=== PATIENT | female | born 1945 | race Caucasian/White ===

== ENCOUNTER 2019-06-09 09:37 | Inpatient (IN) | payer MEDICARE ==
[~2019-06-09] VITALS: Ht 172.7 cm; Wt 93.2 kg
[2019-06-09] VITALS (12 sets, daily range): BP systolic 88–143; BP diastolic 38–95
[~2019-06-09 09:37] MED LIST: ALBU18HF2 INH; ALBU2.5V12 NEB; ASPI81TA44 PO; BUPR150T13 PO; CARB200T PO; CHOL100046 PO; CLON-528 PO; FLUT1DIS4 INH; LOVA20TA2 PO; MONT10TA24 PO; MULT1TAB74 PO; RISP0.257 PO; SYN0.088T PO; ZOLP10TA5 PO
[2019-06-09] MEDS ORDERED: iohexol 350MG/ML 100ml bottle IV ONE ×2 (10:06→19:19)
[2019-06-09 10:08] LABS: BASOPHILS % (AUTO) 0.8 % (0-1); EOSINOPHILS # (AUTO) 0.1 X10'3 (0-0.9); EOSINOPHILS % (AUTO) 1.7 % (0-6); HEMATOCRIT 40.2 % (35.0-45.0); HEMOGLOBIN 13.6 g/dl (12.0-16.0); LYMPHOCYTES # (AUTO) 1.5 X10'3 (1.1-4.8); LYMPHOCYTES % (AUTO) 30.2 % (21-51); MEAN CORPUSCULAR HEMOGLOBIN 30.6 PG (27.0-31.0); MEAN CORPUSCULAR HGB CONC 33.8 g/dL (33.0-36.5); MEAN CORPUSCULAR VOLUME 90.6 FL (78-98); MEAN PLATELET VOLUME 7.7 FL (7.4-10.4); MONOCYTES # (AUTO) 0.4 X10'3 (0-0.9); MONOCYTES % (AUTO) 7.3 % (2-12); NEUTROPHILS # (AUTO) 3.1 X10'3 (1.8-7.7); PLATELET COUNT 224 X10'3 (140-440); RED BLOOD COUNT 4.44 X10'6 (4.20-5.60); RED CELL DISTRIBUTION WIDTH 13.5 % (11.5-14.5); WHITE BLOOD COUNT 5.1 X10'3 (4.5-11.0)
--- NOTE | 2019-06-09 10:17 | NUR ---
pt out to ct via wheelchair with head inspector and center marker
[2019-06-09 10:26] LABS: ALANINE AMINOTRANSFERASE 19 U/L (12-78); ALBUMIN 3.1 G/DL (3.4-5.0); ALBUMIN/GLOBULIN RATIO 0.9 (1.1-1.5); ALKALINE PHOSPHATASE 117 IU/L (46-116); ANION GAP 8 (8-16); ASPARTATE AMINO TRANSFERASE 34 U/L (10-37); BILIRUBIN,TOTAL 0.4 MG/DL (0.1-1.0); BLOOD UREA NITROGEN 8 MG/DL (7-18); BUN/CREATININE RATIO 8.2 (6.6-38.0); CALCIUM 9.3 MG/DL (8.5-10.1); CHLORIDE 109 MMOL/L (99-107); CREATININE 0.98 MG/DL (0.40-0.90); GLUCOSE 98 MG/DL (70-104); SODIUM 143 MMOL/L (135-145); TOTAL CARBON DIOXIDE 25.6 MMOL/L (24-32); TOTAL PROTEIN 6.5 G/DL (6.4-8.2); eGFR 56 ML/MIN
[2019-06-09 10:35] LABS: MAGNESIUM 1.9 MG/DL (1.5-2.4)
[2019-06-09 10:36] LABS: POTASSIUM 3.8 MMOL/L (3.5-5.1)
[2019-06-09] MEDS ORDERED: metoprolol tartrate 1mg/ml inj IV ONE (10:55)
[2019-06-09 11:01] LABS: D-DIMER 0.65 MG/L FEU (0-0.50)
--- NOTE | 2019-06-09 11:18 | NUR ---
NOTIFIED DR SOLORIO REGARDING PT CP 01/[address] GUARDADO HE WILL ORDER PAIN MEDICATION AND ALSO ORDER NITRO DRIP .
[2019-06-09] MEDS ORDERED: fentaNYL/PF 50MCG/1 ML 2ML syringe IV ONE (11:20)
[2019-06-09] MEDS ORDERED: nitroGLYCERIN-Tridil 50MG/D5W 250 ML IV SCH (11:20)
--- NOTE | 2019-06-09 11:44 | NUR ---
pt recevied fentnyl 50 mcg iv for cp 01/12,pt bp checked prior to metoprol administration 145/109,hr 94.pt post metoprol admin bpo 128/89,hr 91.
[2019-06-09] MEDS ORDERED: BUPR-84 PO (12:22)
[2019-06-09] MEDS ORDERED: LOSA50TA64 PO (12:22)
[2019-06-09] MEDS ORDERED: QUET25TA34 PO (12:22)
--- NOTE | 2019-06-09 12:25 | NUR ---
DR. GOMEZ IS OUT OF TOWN, WILL CALL DR. IBARRA, NUTRITION PROFESSOR.
--- NOTE | 2019-06-09 13:00 | NUR ---
Patient in room MED 309. I have received report from [facility] and had the opportunity to ask questions and assume patient care.
[2019-06-09] MEDS ORDERED: GABA-530 PO (13:52)
--- NOTE | 2019-06-09 14:10 | NUR ---
Critical troponin - called Dr. Morton Spoke with Dr. Morton regarding 3hr troponin of 9.27, received orders to initiate heparin and aggrastat gtt per protocol. No other orders given at this time.
[2019-06-09] MEDS ORDERED: heparin 25,000 UNIT/250ml bag 250 ML IV SCH (14:51)
[2019-06-09] MEDS ORDERED: heparin 10,000 units/1 ML INJ IV PRN (14:55)
[2019-06-09] MEDS ORDERED: tirofiban 5mg in NS 100mL 100 ML IV SCH (14:55)
[2019-06-09] MEDS ORDERED: heparin 10,000 units/1 ML INJ IV ONE (14:55)
[2019-06-09 16:08] LABS: PARTIAL THROMBOPLASTIN TIME 32 SECONDS (22-32)
--- NOTE | 2019-06-09 16:35 | NUR ---
Critical troponin - paged Dr. Morton "PAGER ID: [phone] MESSAGE: 309 Iraida Rodney 6hr troponin: 9.27 (3hr: 9.21). Heparin, nitro, and aggrastat infusing per orders. Bria ACCE [id number]"
[2019-06-09] MEDS ORDERED: predniSONE 20 mg tablet PO STA (17:17)
[2019-06-09] MEDS ORDERED: methylPREDNISolone sod succ 125mg/2ml vial IV ONE (17:20)
--- NOTE | 2019-06-09 17:40 | NUR ---
PAGER ID: [phone] MESSAGE: "RM 309 Iraida Rodney Please reconcile medications. Thanks, Bria ACCE [id number]"
--- NOTE | 2019-06-09 19:00 | NUR ---
DR. GARCIA IN TO SEE PATIENT. RECEIVED ORDERS TO CONTINUE ALL HOME MEDS. TMS FAXED TO PHARMACY. PATIENT WILL BE GOING TO SECURE SOFTWARE ASSESSOR SHORTLY.
[2019-06-09] MEDS ORDERED: LIDOcaine 1% (10mg/ml)w/preservative injection 20ml MDV ONE (19:19)
[2019-06-09] MEDS ORDERED: midazolam 2 mg/2 ml injection ONE (19:19)
[2019-06-09] MEDS ORDERED: iohexol 350 MG/ML 50ML vial IV ONE (19:19)
[2019-06-09] MEDS ORDERED: fentaNYL/PF 50MCG/1 ML 2ML syringe ONE (19:19)
[2019-06-09] MEDS ORDERED: clonazePAM 0.5mg tablet PO PRN (19:20)
[2019-06-09] MEDS ORDERED: non-formulary drug (Albuterol Sulfate (Ventolin Hfa) 2 PUFFS) INH SCH (19:20)
[2019-06-09] MEDS ORDERED: albuterol 2.5 MG/3 ML nebule NEB PRN (19:25)
[2019-06-09] MEDS ORDERED: proCHLORperazine 10 MG/2 ml inj ONE (19:48)
[2019-06-09] MEDS ORDERED: diphenhydrAMINE 50 mg/ml inj ONE (19:51)
[2019-06-09] MEDS: budesonide 0.5mg/2ml UD nebule IH SCH (20:00)
[2019-06-09] MEDS ORDERED: non-formulary drug (Fluticasone/Salmeterol (Advair 250-50 Diskus) 1 PUFFS) INH SCH (20:00)
--- NOTE | 2019-06-09 20:26 | NUR ---
patient just left the room for ct of the hip with iv contrast. patient alert, oriented x4. not on any pain. Addendum: 06/09/19 at 2026 by Temitope Quiroga RN worng patient.....patient did not go for ct of the hip.
[2019-06-09] MEDS ORDERED: atropine 0.1mg/ml 10ml syringe ONE (20:31)
[2019-06-09] MEDS ORDERED: DOBUTamine-DoBUTrex 500mg/D5W 250 ML IV ONE (20:34)
[2019-06-09] MEDS: albuterol 2.5 MG/3 ML nebule NEB SCH (21:00)
[2019-06-09] MEDS ORDERED: proCHLORperazine 10 MG/2 ml inj IV PRN (21:40)
[2019-06-09] MEDS ORDERED: HYDROcodone/acetaminophen 5mg/325mg tablet PO PRN (21:40)
[2019-06-09] MEDS ORDERED: ondansetron/PF 4mg/2ml inj IV PRN (21:40)
[2019-06-09] MEDS ORDERED: OXAZEpam 15mg capsule PO PRN (21:40)
[2019-06-09] MEDS ORDERED: normal saline 1000ml 1,000 ML IV ONE (21:40)
[2019-06-09] MEDS ORDERED: nitroGLYCERIN 0.4mg SUBLingual tab SL PRN (21:40)
[2019-06-09] MEDS: QUEtiapine 25mg tablet PO SCH (22:03)
[2019-06-09] MEDS: buPROPion SR 150mg tablet PO SCH (22:03)
[2019-06-09] MEDS: montelukast 10mg tablet PO SCH (22:03)
[2019-06-09] MEDS: carBAMazepine Ext. Release 200 MG TAB.ER.12H PO SCH (22:04)
[2019-06-09] MEDS: HYDROcodone/acetaminophen 10/325mg tab PO PRN (22:04)
[2019-06-09] MEDS: nystatin 15 GM powder TP SCH (22:05)
--- NOTE | 2019-06-09 23:50 | NUR ---
Dobutamin IV drip Discontinues at 2330 per written order of Dr. Rojas. The patient's systolic blood pressure above 120.
[2019-06-10] MEDS: gabapentin 100mg capsule PO SCH ×4 (00:08→23:56)
[2019-06-10 02:00] VITALS: BP 180/81
[2019-06-10] MEDS: HYDROcodone/acetaminophen 10/325mg tab PO PRN (02:10)
[2019-06-10] MEDS: albuterol 2.5 MG/3 ML nebule NEB SCH ×4 (03:37→19:44)
--- NOTE | 2019-06-10 06:33 | NUR ---
Problems reprioritized. Patient report given to Leticia, questions answered & plan of care reviewed with .
[2019-06-10 07:00] VITALS: BP 149/101
[2019-06-10 07:34] LABS: BASOPHILS % (AUTO) 0.2 % (0-1); EOSINOPHILS % (AUTO) 0 % (0-6); HEMATOCRIT 36.3 % (35.0-45.0); HEMOGLOBIN 12.2 g/dl (12.0-16.0); LYMPHOCYTES # (AUTO) 0.6 X10'3 (1.1-4.8); LYMPHOCYTES % (AUTO) 6.8 % (21-51); MEAN CORPUSCULAR HEMOGLOBIN 30.9 PG (27.0-31.0); MEAN CORPUSCULAR HGB CONC 33.5 g/dL (33.0-36.5); MEAN CORPUSCULAR VOLUME 92.1 FL (78-98); MEAN PLATELET VOLUME 8.1 FL (7.4-10.4); MONOCYTES # (AUTO) 0.2 X10'3 (0-0.9); NEUTROPHILS # (AUTO) 7.5 X10'3 (1.8-7.7); PLATELET COUNT 247 X10'3 (140-440); RED BLOOD COUNT 3.94 X10'6 (4.20-5.60); RED CELL DISTRIBUTION WIDTH 13.1 % (11.5-14.5); WHITE BLOOD COUNT 8.2 X10'3 (4.5-11.0)
[2019-06-10 07:51] LABS: ALBUMIN 2.9 G/DL (3.4-5.0); ANION GAP 12 (8-16); BLOOD UREA NITROGEN 11 MG/DL (7-18); BUN/CREATININE RATIO 12.5 (6.6-38.0); CHLORIDE 108 MMOL/L (99-107); CREATININE 0.88 MG/DL (0.40-0.90); GLUCOSE 157 MG/DL (70-104); SODIUM 142 MMOL/L (135-145); TOTAL CARBON DIOXIDE 22.1 MMOL/L (24-32); eGFR 63 ML/MIN
[2019-06-10] MEDS: carBAMazepine Ext. Release 200 MG TAB.ER.12H PO SCH ×2 (08:00→22:11)
[2019-06-10] MEDS ORDERED: losartan 50mg tablet PO SCH (08:00)
[2019-06-10] MEDS: budesonide 0.5mg/2ml UD nebule IH SCH ×2 (09:34→19:43)
[2019-06-10 11:00] VITALS: BP 102/54
[2019-06-10] MEDS: nystatin 15 GM powder TP SCH ×3 (12:06→22:16)
[2019-06-10] MEDS: multivitamins, therapeutics tablet PO SCH (12:06)
[2019-06-10] MEDS: buPROPion SR 150mg tablet PO SCH ×2 (12:06→20:00)
[2019-06-10] MEDS: atorvastatin 20mg tablet PO SCH (12:08)
[2019-06-10] MEDS: levoTHYROXINE 88mcg tablet PO SCH (12:26)
[2019-06-10 15:00] VITALS: BP 104/52
[2019-06-10 18:00] VITALS: BP 106/43
--- NOTE | 2019-06-10 18:00 | NUR ---
Patient in room MED 309. I have received report from JULIA SWANSON and had the opportunity to ask questions and assume patient care.
[2019-06-10 22:00] VITALS: BP 104/45
[2019-06-10] MEDS: QUEtiapine 25mg tablet PO SCH (22:10)
[2019-06-10] MEDS: montelukast 10mg tablet PO SCH (22:10)
[2019-06-11 02:00] VITALS: BP 89/42
[2019-06-11] MEDS: albuterol 2.5 MG/3 ML nebule NEB SCH ×2 (02:28→09:15)
[2019-06-11 05:11] LABS: BASOPHILS % (AUTO) 0.2 % (0-1); EOSINOPHILS % (AUTO) 0.1 % (0-6); HEMATOCRIT 27.7 % (35.0-45.0); HEMOGLOBIN 9.5 g/dl (12.0-16.0); LYMPHOCYTES # (AUTO) 1.6 X10'3 (1.1-4.8); LYMPHOCYTES % (AUTO) 17.7 % (21-51); MEAN CORPUSCULAR HEMOGLOBIN 31.5 PG (27.0-31.0); MEAN CORPUSCULAR HGB CONC 34.3 g/dL (33.0-36.5); MEAN CORPUSCULAR VOLUME 91.9 FL (78-98); MEAN PLATELET VOLUME 7.9 FL (7.4-10.4); MONOCYTES # (AUTO) 0.6 X10'3 (0-0.9); MONOCYTES % (AUTO) 6.6 % (2-12); NEUTROPHILS # (AUTO) 6.9 X10'3 (1.8-7.7); NEUTROPHILS % (AUTO) 75.4 % (42-75); PLATELET COUNT 198 X10'3 (140-440); RED BLOOD COUNT 3.01 X10'6 (4.20-5.60); RED CELL DISTRIBUTION WIDTH 13.7 % (11.5-14.5); WHITE BLOOD COUNT 9.1 X10'3 (4.5-11.0)
[2019-06-11 05:26] LABS: ALBUMIN 2.7 G/DL (3.4-5.0); ANION GAP 9 (8-16); BLOOD UREA NITROGEN 20 MG/DL (7-18); BUN/CREATININE RATIO 21.1 (6.6-38.0); CHLORIDE 108 MMOL/L (99-107); CREATININE 0.95 MG/DL (0.40-0.90); GLUCOSE 118 MG/DL (70-104); POTASSIUM 3.7 MMOL/L (3.5-5.1); SODIUM 142 MMOL/L (135-145); TOTAL CARBON DIOXIDE 25.5 MMOL/L (24-32); eGFR 58 ML/MIN
[2019-06-11 06:00] VITALS: BP 101/51
--- NOTE | 2019-06-11 06:00 | NUR ---
Patient in room MED 309. I have received report from Joie SWANSON and had the opportunity to ask questions and assume patient care.
--- NOTE | 2019-06-11 06:00 | NUR ---
Problems reprioritized. Patient report given, questions answered & plan of care reviewed with Gini SWANSON.
[2019-06-11 07:00] VITALS: BP 101/51
[2019-06-11] MEDS: multivitamins, therapeutics tablet PO SCH (08:51)
[2019-06-11] MEDS: nystatin 15 GM powder TP SCH ×2 (08:51→13:00)
[2019-06-11] MEDS: gabapentin 100mg capsule PO SCH (08:52)
[2019-06-11] MEDS: levoTHYROXINE 88mcg tablet PO SCH (08:52)
[2019-06-11] MEDS: buPROPion SR 150mg tablet PO SCH (08:52)
[2019-06-11] MEDS: atorvastatin 20mg tablet PO SCH (08:52)
[2019-06-11] MEDS: carBAMazepine Ext. Release 200 MG TAB.ER.12H PO SCH (08:53)
[2019-06-11] MEDS: budesonide 0.5mg/2ml UD nebule IH SCH (09:15)
[2019-06-11 11:00] VITALS: BP 125/65
[2019-06-11] MEDS ORDERED: APIX5TAB3 PO (12:18)
[2019-06-11 14:00] VITALS: BP_SYST 109; BP_SYST 115; BP_DIAS 64; BP_DIAS 67; BP_DIAS 70
--- NOTE | 2019-06-11 14:00 | NUR ---
Pt IV's removed catheters intact and no s/s of complications noted. Patient tolerated well. Orthostatic blood pressures taken and the negative (not orthostatic ) results called to him. Patients manages her medications and instructed to not give her anymore [place] per Dr Rojas. He had discontinued during pt stay. All instructions including medications given and the pt's stated understanding and agreed with POC. Pt was escorted in a wheelchair to a private vehicle and left without incident.
== END 2019-06-11 14:20 | disposition home or self-care (01) | DRG 281 ==
LOC: ER 09:37 → ED HOLD 11:29 → MED 3N 13:40
PROVIDERS: ADMIT Internal Medicine; ATTEND Internal Medicine
PROC: 4A023N7 Measurement of Cardiac Sampling and Pressure, Left Heart, Percutaneous Approach (ICD-10-PCS; principal; 2019-06-09)
PROC: B2111ZZ Fluoroscopy of Multiple Coronary Arteries using Low Osmolar Contrast (ICD-10-PCS; 2019-06-09)
PROC: B2151ZZ Fluoroscopy of Left Heart using Low Osmolar Contrast (ICD-10-PCS; 2019-06-09)
PROC: B41F1ZZ Fluoroscopy of Right Lower Extremity Arteries using Low Osmolar Contrast (ICD-10-PCS; 2019-06-09)
PROC: B41C1ZZ Fluoroscopy of Pelvic Arteries using Low Osmolar Contrast (ICD-10-PCS; 2019-06-09)
DX: I21.4 Non-ST elevation (NSTEMI) myocardial infarction (principal); I48.20 Chronic atrial fibrillation, unspecified; I48.92 Unspecified atrial flutter; E78.00 Pure hypercholesterolemia, unspecified; Z95.0 Presence of cardiac pacemaker; E03.9 Hypothyroidism, unspecified; E78.5 Hyperlipidemia, unspecified; I95.81 Postprocedural hypotension; E86.0 Dehydration; I10 Essential (primary) hypertension; J45.909 Unspecified asthma, uncomplicated; Z85.850 Personal history of malignant neoplasm of thyroid; F32.9 Major depressive disorder, single episode, unspecified; F43.10 Post-traumatic stress disorder, unspecified; Z90.49 Acquired absence of other specified parts of digestive tract; Z90.710 Acquired absence of both cervix and uterus; Z91.041 Radiographic dye allergy status; M79.7 Fibromyalgia; E66.9 Obesity, unspecified; Z68.31 Body mass index [BMI] 31.0-31.9, adult
CPT/HCPCS: 36415; 71045; 80048; 80053; 83735; 83880; 84484; 85025; 85347; 85379; 85610; 85730; 87081; 93005; 93458; 94640; 94760; 99152; 99153; 99285; A4620; A6258; C1760; C1769; GO378; J0461; J0780; J1200; J1250; J1644; J2001; J2250; J2405; J2930; J3010; J3246; J3490; J7030; J7512; J7626; Q9967

== ENCOUNTER 2019-08-08 13:56 | Day surgery (SDC) | payer MEDICARE ==
[2019-08-08] VITALS (11 sets, daily range): BP systolic 106–146; BP diastolic 64–91
[~2019-08-08] VITALS: Ht 172.7 cm; Wt 92.0 kg
[~2019-08-08 13:56] MED LIST changes: +APIX5TAB3 PO; -ASPI81TA44 PO; +BUPR-72 PO; -BUPR150T13 PO; -CHOL100046 PO; +GABA-530 PO; +LOSA50TA64 PO; -MONT10TA24 PO; +MONT10TA26 PO; +QUET25TA34 PO; -RISP0.257 PO; -ZOLP10TA5 PO
[2019-08-08] MEDS ORDERED: MIDAZolam 1mg/ml 10ml vial IV ONE (14:30)
[2019-08-08] MEDS ORDERED: fentaNYL/PF 50MCG/1 ML 2ML syringe IV ONE (14:30)
[2019-08-08] MEDS ORDERED: normal saline 1000ml 1,000 ML IV SCH (14:30)
[2019-08-08] MEDS ORDERED: GABA-530 PO (15:34)
[2019-08-08] MEDS ORDERED: LOVA40TA2 PO (15:34)
[2019-08-08] MEDS ORDERED: FLUT1DIS7 INH (15:34)
[2019-08-08] MEDS ORDERED: APIX5TAB3 PO (15:34)
== END 2019-08-08 17:35 | disposition home or self-care (01) ==
LOC: SSTAY O 13:56
PROVIDERS: ATTEND Internal Medicine Interventional Cardiology
DX: I48.91 Unspecified atrial fibrillation (principal); I25.10 Atherosclerotic heart disease of native coronary artery without angina pectoris; J45.909 Unspecified asthma, uncomplicated; I10 Essential (primary) hypertension; F43.10 Post-traumatic stress disorder, unspecified; F31.9 Bipolar disorder, unspecified; Z95.0 Presence of cardiac pacemaker; Z88.8 Allergy status to other drugs, medicaments and biological substances; Z79.899 Other long term (current) drug therapy; Z98.890 Other specified postprocedural states; Z90.710 Acquired absence of both cervix and uterus; Z85.850 Personal history of malignant neoplasm of thyroid; Z79.01 Long term (current) use of anticoagulants
CPT/HCPCS: 92960; 93005; J2250; J3010; J7030

== ENCOUNTER 2021-11-07 12:41 | Outpatient (CLI) | payer MEDICARE, BC ==
[2021-11-07] VITALS (18 sets, daily range): BP systolic 110–187; BP diastolic 61–96
[~2021-11-07 12:41] MED LIST changes: -FLUT1DIS4 INH; +FLUT1DIS7 INH; -LOSA50TA64 PO; -LOVA20TA2 PO; +LOVA40TA2 PO; +MONT-40 PO; -MONT10TA26 PO; +MULT-620 PO; -MULT1TAB74 PO; -QUET25TA34 PO; +QUET25TA36 PO
== END 2021-11-07 23:59 | disposition home or self-care (01) ==
LOC: CARD DIAG 12:41
PROVIDERS: ATTEND Internal Medicine Interventional Cardiology
DX: I95.1 Orthostatic hypotension (principal)
CPT/HCPCS: 93660